=== PATIENT | female | born 1970 | race Caucasian/White ===

== ENCOUNTER 2018-01-09 22:05 | Emergency (ER) | payer OTHER ==
[~2018-01-09] VITALS: Ht 167.6 cm; Wt 70.8 kg
== END 2018-01-10 11:09 | disposition home or self-care (01) ==
LOC: ER 22:05
DX: K59.09 Other constipation (principal); R10.814 Left lower quadrant abdominal tenderness

== ENCOUNTER → 2020-04-09 | Outpatient (CLI) | payer OTHER | END | disposition home or self-care (01) | LOC: OFIC 805 10:00 | PROVIDERS: ATTEND Otolaryngology | DX: M26.4 Malocclusion, unspecified (principal); R60.0 Localized edema; S02.2XXA Fracture of nasal bones, initial encounter for closed fracture; S09.8XXA Other specified injuries of head, initial encounter ==

== ENCOUNTER 2020-04-21 10:36 | Emergency (ER) | payer OTHER ==
[~2020-04-21] VITALS: Ht 167.6 cm; Wt 70.3 kg
== END 2020-04-21 13:06 | disposition home or self-care (01) ==
LOC: ER 10:36
DX: H83.03 Labyrinthitis, bilateral (principal)

== ENCOUNTER 2020-05-06 12:38 | Outpatient (CLI) | payer OTHER | END 2020-05-06 17:24 | disposition home or self-care (01) | LOC: OFIC 805 12:38 | PROVIDERS: ATTEND Otolaryngology | DX: S02.2XXA Fracture of nasal bones, initial encounter for closed fracture (principal); S09.8XXA Other specified injuries of head, initial encounter; R09.81 Nasal congestion; H83.03 Labyrinthitis, bilateral ==

== ENCOUNTER 2020-09-06 15:41 | Outpatient (CLI) | payer OTHER | END 2020-09-06 16:15 | disposition home or self-care (01) | LOC: OFIC 805 15:41 | PROVIDERS: ATTEND Otolaryngology Otology & Neurotology | DX: J34.2 Deviated nasal septum (principal); R09.81 Nasal congestion; S02.2XXA Fracture of nasal bones, initial encounter for closed fracture; S04.50XA Injury of facial nerve, unspecified side, initial encounter ==